=== PATIENT | male | born 2000 | race Caucasian/White ===

== ENCOUNTER 2021-12-21 17:10 | Emergency (ER) | payer OTHER ==
[~2021-12-21] VITALS: Ht 177.8 cm; Wt 106.9 kg
[2021-12-21] MEDS ORDERED: IBUPROFEN 600 MG TABLET. PO ONE ×2 (17:39→17:45)
[2021-12-21] MEDS ORDERED: ACETAMINOPHEN 500 MG TABLET PO ONE ×2 (17:39→17:45)
--- NOTE | 2021-12-21 17:49 | PHYS DOC ---
General Adult EDM: Chief Complaint: SORE THROAT HPI: HPI: Patient is a 21-year-old male who presents to the emergency department for sore throat that started 2 days ago. Patient is also reporting fevers and a productive cough. He denies any difficulty swallowing but does report that is painful with swallowing. He also denies nausea, vomiting and sick exposures. (JONATHAN ARNOLD APRN) Review of Systems: Review of Systems: Constitutional: See HPI HENT: See HPI Respiratory: See HPI GI: See HPI Integument: Reports lump to left side of neck Lymphatic: See HPI (JONATHAN ARNOLD APRN) Current Medications: Current Meds: Current Medications Medications (Trade) Dose Ordered Sig/Dean Start Time Stop Time Status Last Admin Dose Admin Acetaminophen (Tylenol) 1,000 mg 1X ONCE 12/21/21 17:45 12/21/21 17:46 UNV 12/21/21 17:45 1,000 MG Ibuprofen (Motrin) 600 mg 1X ONCE 12/21/21 17:45 12/21/21 17:46 UNV 12/21/21 17:44 600 MG (JONATHAN ARNOLD RODEO RIDER) Physical Exam: PE: Constitutional: Well developed, well nourished, no acute distress, non-toxic appearance. [] HENT: Normocephalic, atraumatic, bilateral external ears normal, oropharynx moist, 3+ tonsillar enlargement with erythema, no exudate, uvula midline, no trismus, no phonation changes, patient maintaining secretions, no oral exudates, nose normal. [] Eyes: PERRL, EOMI, conjunctiva normal, no discharge. [] Neck: Normal range of motion, no tenderness, left posterior cervical lymphadenopathy, supple, no stridor. [] Cardiovascular:Heart rate regular rhythm, no murmur [] Lungs & Thorax: Bilateral breath sounds clear to auscultation [] Abdomen: Bowel sounds normal, soft, no tenderness, no masses, no pulsatile masses. [] Skin: Warm, dry, no erythema, no rash. [] Back: No tenderness, normal range of motion Extremities: No tenderness, no cyanosis, no clubbing, ROM intact, no edema. [] Neurologic: Alert and oriented X 3, normal motor function, normal sensory function, no focal deficits noted. [] Psychologic: Affect normal, judgement normal, mood normal. [] (JONATHAN ARNOLD APRN) Current Patient Data: Labs: Laboratory Tests Test 12/21/21 17:42 12/21/21 17:52 12/21/21 18:57 Influenza Type A (Rapid) Negative Influenza Type B (Rapid) Negative SARS-CoV-2 Antigen (Rapid) Negative Group A Streptococcus Rapid Negative Heterophil Agglutinins Positive Current Medications Medications (Trade) Dose Ordered Sig/Dean Route PRN Reason Start Time Stop Time Status Last Admin Dose Admin Ibuprofen (Motrin) 600 mg 1X ONCE PO 12/21/21 17:45 12/21/21 17:46 UNV 12/21/21 17:44 Acetaminophen (Tylenol) 1,000 mg 1X ONCE PO 12/21/21 17:45 12/21/21 17:46 UNV 12/21/21 17:45 (JONATHAN ARNOLD APRN) EKG: EKG: [] (JONATHAN ARNOLD APRN) Radiology/Procedures: Radiology/Procedures: [] (JONATHAN ARNOLD APRN) Heart Score: C/O Chest Pain: N/A Risk Factors: Risk Factors: DM, Current or recent (<one month) smoker, HTN, HLP, family history of CAD, obesity. Risk Scores: Score 0 - 3: 2.5% MACE over next 6 weeks - Discharge Home Score 4 - 6: 20.3% MACE over next 6 weeks - Admit for Clinical Observation Score 7 - 10: 72.7% MACE over next 6 weeks - Early Invasive Strategies (JONATHAN ARNOLD APRN) Course & Med Decision Making: Course & Med Decision Making Pertinent Labs and Imaging studies reviewed. (See chart for details) [] Patient resents to the emergency department for sore throat with fevers and a cough. Patient does have enlarged tonsils, left posterior cervical lymphadenopathy and fever. His fever was treated in the emergency department. He is swab for Covid, influenza and strep throat as well as mono tested. Negative strep, flu and COVID testing. Patient positive for mono. Patient advised to increase fluids, he will be discharged home with steroids, advised to take ibuprofen for any pain. Avoid contact sports for 6 to 8 weeks. I discussed with patient all findings and diagnostic testing as well as the need to follow-up with PCP for further evaluation and treatment or return to the ER if any new or worsening symptoms. Strict return precautions were also discussed at length. Patient voiced understanding and agreement with the plan. Patient is hemodynamically stable at the time of disposition. (JONATHAN ARNOLD APRN) [place] Disclaimer: [place] Disclaimer: This electronic medical record was generated, in whole or in part, using a voice recognition dictation system. (JONATHAN ARNOLD APRN) Attending Co-Sign The patient was seen and interviewed as well as examined at the bedside. The chart was reviewed. The case was discussed. Agree with the plan of care. (DA BELLA DO) Departure Departure: Impression: Primary Impression: Mononucleosis Qualified Codes: B27.90 - Infectious mononucleosis, unspecified without complication Disposition: HOME / SELF CARE / HOMELESS Condition: GOOD Referrals: BONNY EVANS DO (PCP) Patient Instructions: Infectious Mononucleosis Additional Instructions: You are seen in the emergency department for sore throat with fever. You are positive for mono. [place] is a very contagious so practice proper hygiene change and do not share food or drink. Please throw away your toothbrush and get a new one. Treatment for this is symptomatic. Symptoms usually last about 2 to 4 weeks but can last up to 2 months. Please increase your fluids. You can take ibuprofen for pain. You are being discharged home with steroid to help with inf lammation. You will need to avoid any contact sports or any contact activities for 6 to 8 weeks as you can rupture your spleen. Please follow-up with your primary care provider tomorrow regarding your ER visit. Return to the emergency department if you develop abdominal pain, high fevers refractory to treatment, intractable nausea or vomiting. Scripts Methylprednisolone (MEDROL) 4 Mg Tab.ds.pk 1 PKG PO UD for inflammation, #1 PKG 0 Refills Prov: JONATHAN ARNOLD APRN 12/21/21 JONATHAN ARNOLD APRN Dec 21, 2021 17:49 DA BELLA DO Dec 22, 2021 14:08
[2021-12-21 17:58] VITALS: BP 144/78
[2021-12-21 18:46] LABS: INFLUENZA A PATIENT NEGATIVE (NEGATIVE); INFLUENZA B PATIENT NEGATIVE (NEGATIVE)
[2021-12-21 19:11] LABS: MONONUCLEOSIS PATIENT POSITIVE (NEGATIVE)
[2021-12-21] MEDS ORDERED: METH4TAB2 PO (19:31)
== END 2021-12-21 20:13 | disposition home or self-care (01) ==
LOC: ER 17:10
DX: B27.90 Infectious mononucleosis, unspecified without complication (principal); Z20.822 Contact with and (suspected) exposure to COVID-19
CPT/HCPCS: 86308; 87070; 87428; 87880; 99283